=== PATIENT | female | born 1970 | race Caucasian/White ===

== ENCOUNTER 2022-05-21 07:58 | Outpatient (CLI) | payer OTHER, SELFPAY | END 2022-05-21 07:59 | disposition home or self-care (01) | PROVIDERS: PCP Family Medicine; Visit Provider Family Medicine | DX: M54.16 Radiculopathy, lumbar region (principal) | CPT/HCPCS: 64483; J1100; Q9966 ==

== ENCOUNTER 2023-08-15 10:13 | Outpatient (CLI) | payer OTHER, SELFPAY | END 2023-08-15 10:14 | disposition home or self-care (01) | LOC: INJ CL 10:14 | PROVIDERS: PCP Family Medicine; Visit Provider Family Medicine | DX: M53.3 Sacrococcygeal disorders, not elsewhere classified (principal) | CPT/HCPCS: 27096; J0702; Q9966 ==

== ENCOUNTER 2025-07-19 10:02 | Outpatient (CLI) | payer BC, SELFPAY | END 2025-07-19 10:03 | disposition home or self-care (01) | LOC: INJ CL 10:05 | PROVIDERS: PCP Family Medicine; Visit Provider Family Medicine | DX: M47.816 Spondylosis without myelopathy or radiculopathy, lumbar region (principal) | CPT/HCPCS: 64493; J0702; Q9966 ==